=== PATIENT | female | born 1945 | race Caucasian/White ===

== ENCOUNTER 2016-12-13 09:52 | Outpatient (CLI) | payer MEDICARE, OTHER | END 2016-12-13 09:53 | disposition home or self-care (01) | DX: E11.9 Type 2 diabetes mellitus without complications (principal); Z79.899 Other long term (current) drug therapy ==

== ENCOUNTER 2017-03-14 10:51 | Outpatient (CLI) | payer MEDICARE, OTHER | END 2017-03-14 10:52 | disposition home or self-care (01) | DX: E11.9 Type 2 diabetes mellitus without complications (principal); Z79.899 Other long term (current) drug therapy ==

== ENCOUNTER 2017-04-27 09:53 | Outpatient (CLI) | payer MEDICARE, OTHER | END 2017-04-27 09:54 | disposition home or self-care (01) | DX: M81.0 Age-related osteoporosis without current pathological fracture (principal); E78.5 Hyperlipidemia, unspecified; Z79.899 Other long term (current) drug therapy ==

== ENCOUNTER 2017-05-02 14:38 | Outpatient (CLI) | payer MEDICARE, OTHER ==
--- NOTE | 2017-05-02 17:12 | XRAY Report ---
THREE VIEW LUMBAR SPINE: 05/02/2017 CLINICAL INDICATION: Pain. AP, lateral, coned-down views of the lumbar spine demonstrate moderate degenerative disk and facet di sease, with disk space narrowing worst at L5-S1. There is degenerative anterolisthesis of L4 on L5 b y 8 mm. There is no evidence of compression fracture. The bowel gas pattern appears unremarkable. IMPRESSION: MODERATE DEGENERATIVE CHANGES, WITH DEGENERATIVE ANTEROLISTHESIS OF L4 ON L5. NO EVIDEN CE OF FRACTURE. JOB #: [id number] EXT JOB #:[id number]
== END 2017-05-02 14:39 | disposition home or self-care (01) ==
LOC: DI 14:38
PROVIDERS: ATTEND Physician Assistant Medical
DX: M51.36 Other intervertebral disc degeneration, lumbar region (principal); M47.896 Other spondylosis, lumbar region; M43.16 Spondylolisthesis, lumbar region
CPT/HCPCS: 72100

== ENCOUNTER 2017-05-15 10:09 | Outpatient (CLI) | payer MEDICARE, OTHER ==
--- NOTE | 2017-05-16 08:29 | Mammography Report ---
DIGITAL BILATERAL SCREENING MAMMOGRAM: 05/15/2017 CLINICAL HISTORY: This is a 71-year-old female in for routine screening mammogram. Patient has had no family history of breast cancer. Patient had no prior breast surgeries. COMPARISON: 04/12/2016, 02/04/2015, 01/27/2014, 10/24/2012, 07/28/2011, 06/21/2010, 06/16/2009, 02/26 TECHNIQUE: Craniocaudad and oblique lateral views of each breast were obtained with [employer] digital mammography. FINDINGS: The breast parenchyma consists of scattered fibroglandular densities. No significant clus ters of calcification are seen. A 1-cm in diameter relatively well-circumscribed mass is once again noted 3.2 cm posterior to the right nipple. This mass is seen on multiple preceding exams dated as f ar back as 03/22/2008 without change. The finding is, therefore, of benign etiology. No significant change is detected in the breasts. IMPRESSION: BREASTS APPEAR RADIOGRAPHICALLY BENIGN. BIRADS CATEGORY 2 - BENIGN FINDING. RECOMMENDATIONS: Annual bilateral screening mammography. STANDARD QUALIFYING STATEMENTS 1. This examination was reviewed with the aid of Computer-Aided Detection (CAD). 2. A negative or benign imaging report should not delay biopsy if clinically suspicious findings are present. Consider surgical consultation if warranted. More than 5% of cancers are not identified by i ursula. 3. Dense breasts may obscure an underlying neoplasm. JOB #: [id number] EXT JOB #:[id number]
== END 2017-05-15 10:10 | disposition home or self-care (01) ==
LOC: DI 10:09
PROVIDERS: ATTEND Physician Assistant Medical
DX: Z12.31 Encounter for screening mammogram for malignant neoplasm of breast (principal)
CPT/HCPCS: 77067

== ENCOUNTER 2017-05-15 10:10 | Outpatient (CLI) | payer MEDICARE, OTHER ==
--- NOTE | 2017-05-17 11:32 | DEXA Report ---
DEXA BONE MINERAL DENSITY SCAN: 05/15/2017 CLINICAL HISTORY: Postmenopausal. TECHNIQUE: Dual energy x-ray absorptiometry (DXA) was performed on a [employer] system. Regions measured are the AP spine, femoral neck, and, if needed, forearm. COMPARISON: None. In accordance with the International Society for Clinical Densitometry (ISCD) guidelines, data from previous exams may be reanalyzed using current recommendations and techniques. This is done to allow a more accurate basis for comparison with the current study. FINDINGS: L1 through L4 T-score is -1.8. This indicates osteopenia according to the World Health Organization guidelines. Femoral neck T-score is -0.7. This is within normal limits according to the World Health Organization guidelines. Total hip T-score is -0.2. This is within normal limits according to the World Health Organization guidelines. The data for the lumbar spine is as follows: REGION BMD (g/cm/cm) T-SCORE Z-SCORE L1 0.994 -1.1 -0.1 L2 0.937 -2.2 -1.1 L3 0.980 -1.8 -0.8 L4 0.944 -2.1 -1.1 TOTAL 0.963 -1.8 -0.7 NOTE: All evaluable vertebrae are used for classification. The data for the hip is as follows: REGION BMD (g/cm/cm) T-SCORE Z-SCORE Neck 0.946 -0.7 0.8 TOTAL 0.987 -0.2 1.0 NOTE: The femoral neck or total proximal femur, whichever is lowest, is used for classification. IMPRESSION: THE WHO CLASSIFICATION BASED ON THE INTERNATIONAL REFERENCE STANDARD IS OSTEOPENIA ACCORDING TO THE WORLD HEALTH ORGANIZATION GUIDELINES. THE PATIENT HAS INCREASED FRACTURE RISK. RECOMMENDATION: Patients with diagnosis of osteoporosis or osteopenia should have regular bone mineral density assessment. For those eligible for Medicare, routine testing is allowed once every 2 years. Testing frequency can be increased for patients who have rapidly progressing disease or for those who are receiving medical therapy to restore bone mass. COMMENT: World Health Organization (WHO) definitions for osteoporosis and osteopenia: NORMAL BMD: T-score at -1.0 or higher, fracture risk is low. OSTEOPENIA BMD: T-score between -1.0 and -2.5, fracture risk is increased. OSTEOPOROSIS BMD: T-score at -2.5 or lower, fracture risk high. National Osteoporosis Foundation recommends: 1. Obtain adequate dietary calcium (at least 1200 mg per day) and vitamin D (400 -800 international units per day). 2. Participate, as appropriate, in regular weightbearing and muscle- strengthening exercise. 3. Avoid tobacco use and reduce alcohol and caffeine intake. 4. For more detailed information see the website at www.NOF.org. MTDD
== END 2017-05-15 10:11 | disposition home or self-care (01) ==
LOC: DI 10:10
PROVIDERS: ATTEND Physician Assistant Medical
DX: Z13.820 Encounter for screening for osteoporosis (principal); M85.88 Other specified disorders of bone density and structure, other site; Z78.0 Asymptomatic menopausal state
CPT/HCPCS: 77080

== ENCOUNTER 2017-06-27 08:00 | Outpatient (CLI) | payer MEDICARE, OTHER ==
[2017-06-27 13:15] LABS: HCT - HEMATOCRIT 37.9 % (37.0-47.0); HGB - HEMOGLOBIN 12.6 g/dL (12.0-16.0); MEAN CORPUSCULAR HEMOGLOBIN 29.4 pg (27.0-31.0); MEAN CORPUSCULAR HGB CONC 33.3 g/dL (32.0-36.0); MEAN CORPUSCULAR VOLUME 88.3 fL (81.0-99.0); MEAN PLATELET VOLUME 9.6 fL (7.9-10.8); RED BLOOD COUNT 4.29 10^6/uL (4.20-5.40); RED CELL DISTRIBUTION WIDTH 14.1 % (12.0-15.0); WHITE BLOOD COUNT 5.6 x10^3/uL (4.8-10.8)
[2017-06-27 13:37] LABS: HEMOGLOBIN A1C 0.66 g/dL
[2017-06-27 13:41] LABS: CALCIUM 9.7 mg/dL (8.5-10.3); CREATININE 0.8 mg/dL (0.4-1.0); POTASSIUM 4.3 mmol/L (3.5-5.0)
[2017-06-27 13:46] LABS: BILIRUBIN,TOTAL 0.8 mg/dL (0.2-1.0); TOTAL PROTEIN 7.6 g/dL (6.7-8.2)
[2017-06-27 13:47] LABS: BILIRUBIN,DIRECT < 0.1 mg/dL (0.1-0.5)
== END 2017-06-27 08:01 | disposition home or self-care (01) ==
LOC: LAB.N 08:00
PROVIDERS: ATTEND Dermatology
DX: B35.1 Tinea unguium (principal); E87.1 Hypo-osmolality and hyponatremia; Z79.899 Other long term (current) drug therapy
CPT/HCPCS: 36415; 80048; 80076; 83036

== ENCOUNTER 2018-02-01 08:00 | Outpatient (CLI) | payer MEDICARE, OTHER ==
[2018-02-01 13:37] LABS: HB2 TOTAL 13.8 g/dL; HEMOGLOBIN A1C 0.72 g/dL; HEMOGLOBIN A1C % 6.9 % (4.6-6.2)
== END 2018-02-01 08:01 | disposition home or self-care (01) ==
LOC: LAB.N 08:00
PROVIDERS: ATTEND Physician Assistant Medical
DX: E11.9 Type 2 diabetes mellitus without complications (principal)
CPT/HCPCS: 36415; 82947; 83036

== ENCOUNTER 2018-07-03 08:00 | Outpatient (CLI) | payer MEDICARE, OTHER ==
[2018-07-03 12:50] LABS: BASOPHILS % (AUTO) 0.8 %; EOSINOPHILS # (AUTO) 0.1 10^3/uL (0.0-0.7); EOSINOPHILS % (AUTO) 1.4 %; HGB - HEMOGLOBIN 13.4 g/dL (12.0-16.0); LYMPHOCYTES # (AUTO) 1.7 10^3/uL (1.5-3.5); MEAN CORPUSCULAR HEMOGLOBIN 29.6 pg (27.0-31.0); MEAN CORPUSCULAR HGB CONC 33.5 g/dL (32.0-36.0); MEAN CORPUSCULAR VOLUME 88.3 fL (81.0-99.0); MEAN PLATELET VOLUME 9.6 fL (7.9-10.8); MONOCYTES # (AUTO) 0.4 10^3/uL (0.0-1.0); MONOCYTES % (AUTO) 6.2 %; NEUTROPHILS # (AUTO) 3.5 10^3/uL (1.5-6.6); NEUTROPHILS % (AUTO) 61.6 %; PLT - PLATELET COUNT 291 10^3/uL (130-450); RED BLOOD COUNT 4.52 10^6/uL (4.20-5.40); RED CELL DISTRIBUTION WIDTH 13.6 % (12.0-15.0); WHITE BLOOD COUNT 5.7 x10^3/uL (4.8-10.8)
[2018-07-03 13:18] LABS: ALBUMIN 4.3 g/dL (3.2-5.5); ALBUMIN/GLOBULIN RATIO 1.3 (1.0-2.2); ALKALINE PHOSPHATASE 79 IU/L (42-121); ALT ALANINE AMINOTRANSFERASE 17 IU/L (10-60); AST ASPARTATE AMINOTRANSFERASE 18 IU/L (10-42); BILIRUBIN,TOTAL 0.6 mg/dL (0.2-1.0); BUN - BLOOD UREA NITROGEN 18 mg/dL (6-20); CALCIUM 9.2 mg/dL (8.5-10.3); CARBON DIOXIDE - CO2 25 mmol/L (21-32); CHLORIDE 102 mmol/L (101-111); CHOL/HDL RATIO 2.9 (<4.4); CHOLESTEROL 173 mg/dL; CREATININE 0.8 mg/dL (0.4-1.0); GFR - MDRD 70 (>89); GLUCOSE 138 mg/dL (70-100); HDL CHOLESTEROL 59 mg/dL; LDL CHOLESTEROL,CALCULATED 87 mg/dL; LDL/HDL RATIO 1.5 (<4.4); SODIUM 136 mmol/L (135-145); TOTAL PROTEIN 7.5 g/dL (6.7-8.2); VLDL CHOLESTEROL 27 mg/dL
[2018-07-03 16:35] LABS: HB2 TOTAL 14.3 g/dL; HEMOGLOBIN A1C 0.75 g/dL
== END 2018-07-03 08:01 | disposition home or self-care (01) ==
LOC: LAB.N 08:00
PROVIDERS: ATTEND Physician Assistant Medical
DX: Z79.899 Other long term (current) drug therapy (principal); E55.9 Vitamin D deficiency, unspecified; E11.9 Type 2 diabetes mellitus without complications; I10 Essential (primary) hypertension; E78.2 Mixed hyperlipidemia
CPT/HCPCS: 36415; 80053; 80061; 82306; 83036; 83721; 84443; 85025

== ENCOUNTER 2018-07-12 08:24 | Outpatient (CLI) | payer MEDICARE, OTHER ==
--- NOTE | 2018-07-13 09:36 | Mammography Report ---
Procedure Date: 07/12/2018 Accession Number: [id number] / [id number] Procedure: MGN - Screening Mammo Dig Bilat CPT Code: FULL RESULT: EXAM: Screening Mammo Dig Bilat DATE: 07/12/2018 8:52 AM CLINICAL HISTORY: 72-year-old female presents for screening mammogram. TECHNIQUE: Bilateral CC and MLO views were obtained. COMPARISON: 05/15/2017, 04/12/2016, 02/04/2015, 01/27/2014. FINDINGS: The breasts demonstrate scattered fibroglandular densities bilaterally. Coarse typically benign right breast calcifications are noted. The well-circumscribed hyperdense 1 cm mass posterior to the right nipple is again stable and therefore benign. No suspicious masses, clustered microcalcifications, or regions of architectural distortion are identified. IMPRESSION: Benign findings RECOMMENDATION: Routine annual screening unless otherwise clinically indicated. BIRADS CATEGORY 2: Benign findings STANDARD QUALIFYING STATEMENTS: 1. This examination was reviewed with the aid of Computer-Aided Detection (CAD). 2. A negative or benign imaging report should not delay biopsy if clinically suspicious findings are present. Consider surgical consultation if warrented. More than 5% of cancers are not identified by imaging. 3. Dense breasts may obscure an underlying neoplasm.
== END 2018-07-12 08:25 | disposition home or self-care (01) ==
LOC: DI.N 08:24
PROVIDERS: ATTEND Physician Assistant Medical
DX: Z12.31 Encounter for screening mammogram for malignant neoplasm of breast (principal)
CPT/HCPCS: 77067

== ENCOUNTER 2018-11-28 10:37 | Outpatient (CLI) | payer MEDICARE, OTHER ==
[2018-11-28 15:53] LABS: HEMOGLOBIN A1C 0.73 g/dL; HEMOGLOBIN A1C % 6.9 % (4.6-6.2)
== END 2018-11-28 23:59 | disposition home or self-care (01) ==
LOC: LAB.N 10:37
PROVIDERS: ATTEND Physician Assistant Medical
DX: E11.9 Type 2 diabetes mellitus without complications (principal); Z79.899 Other long term (current) drug therapy
CPT/HCPCS: 36415; 82043; 82947; 83036

== ENCOUNTER 2019-04-10 08:00 | Outpatient (CLI) | payer MEDICARE, OTHER ==
[2019-04-10 19:03] LABS: ALBUMIN 4.1 g/dL (3.2-5.5); ALBUMIN/GLOBULIN RATIO 1.4 (1.0-2.2); ALKALINE PHOSPHATASE 72 IU/L (42-121); ALT ALANINE AMINOTRANSFERASE 22 IU/L (10-60); AST ASPARTATE AMINOTRANSFERASE 19 IU/L (10-42); BILIRUBIN,TOTAL 0.6 mg/dL (0.2-1.0); BUN - BLOOD UREA NITROGEN 15 mg/dL (6-20); CALCIUM 9.2 mg/dL (8.5-10.3); CARBON DIOXIDE - CO2 24 mmol/L (21-32); CHLORIDE 94 mmol/L (101-111); CHOL/HDL RATIO 2.9 (<4.4); CHOLESTEROL 155 mg/dL; CREATININE 0.6 mg/dL (0.4-1.0); GFR - MDRD 97 (>89); GLUCOSE 120 mg/dL (70-100); HDL CHOLESTEROL 53 mg/dL; LDL CHOLESTEROL,CALCULATED 57 mg/dL; LDL/HDL RATIO 1.1 (<4.4); SODIUM 131 mmol/L (135-145); VLDL CHOLESTEROL 45 mg/dL
== END 2019-04-10 23:59 | disposition home or self-care (01) ==
LOC: LAB.N 08:00
PROVIDERS: ATTEND Internal Medicine
DX: E11.9 Type 2 diabetes mellitus without complications (principal); E78.5 Hyperlipidemia, unspecified; I10 Essential (primary) hypertension
CPT/HCPCS: 36415; 80053; 80061; 82043; 83721; 84443

== ENCOUNTER 2019-07-16 14:41 | Outpatient (CLI) | payer MEDICARE, OTHER ==
--- NOTE | 2019-07-18 04:10 | XRAY Report ---
Reason: PERSISTENT SORE NECK Procedure Date: 07/16/2019 Accession Number: [id number] / [id number] Procedure: XRN - Cervical Spine 2 View CPT Code: FULL RESULT: EXAM: CERVICAL SPINE RADIOGRAPHY EXAM DATE: 07/16/2019 03:05 PM CLINICAL HISTORY: Persistent sore neck. Chronic neck pain. COMPARISONS: XR CERVICAL SPINE MIN 4 VIEWS 01/30/2008 4:52 PM. TECHNIQUE: 4 views. A total of 4 exposures are provided for review. FINDINGS: Alignment: Straightening of the cervical spine is noted. Very slight anterolisthesis of C3 relative to C4 and of C4 relative to C5 is noted. Bones: The cervical vertebral bodies and posterior elements are well-visualized from the skull base through C7-T1. No fractures or bone lesions. Disks: Moderate to severe lower cervical disk space height loss as well as endplate osteophytosis. Facets: Multilevel facet arthropathy, left greater than right. Soft Tissues: No pathologic prevertebral soft tissue swelling. No significant consolidation within the lung apices. IMPRESSION: 1. Loss of cervical lordosis and straightening of the spine may be positional and/or related to muscle spasm. 2. Moderate to severe lower cervical spondylitic change has progressed from the prior exam. 3. Slight anterolisthesis of C3 relative to C4 and of C4 relative to C5 noted. These are likely secondary to degenerative disk disease. There is new moderate to severe C3-C4 disk space height loss. 4. Multilevel cervical facet arthropathy. RAD[facility]
== END 2019-07-16 14:42 | disposition home or self-care (01) ==
LOC: DI.N 14:41
PROVIDERS: ATTEND Internal Medicine
DX: M47.812 Spondylosis without myelopathy or radiculopathy, cervical region (principal); M43.12 Spondylolisthesis, cervical region; M50.31 Other cervical disc degeneration, high cervical region
CPT/HCPCS: 72040

== ENCOUNTER 2022-10-17 12:37 | Outpatient (CLI) | payer MEDICARE, OTHER ==
[2022-10-17 13:28] LABS: THYROID STIMULATING HORMONE 0.62 uIU/mL (0.34-5.60)
[2022-10-17 13:29] LABS: FREE T3 3.04 pg/mL (2.5-3.9)
== END 2022-10-17 12:38 | disposition home or self-care (01) ==
LOC: LAB 12:37
PROVIDERS: ATTEND Internal Medicine
DX: E87.1 Hypo-osmolality and hyponatremia (principal); R94.6 Abnormal results of thyroid function studies
CPT/HCPCS: 36415; 84443; 84481

== ENCOUNTER 2023-02-08 09:28 | Outpatient (CLI) | payer MEDICARE, OTHER ==
[2023-02-08 10:08] LABS: ALBUMIN 4.1 g/dL (3.2-5.5); ALBUMIN/GLOBULIN RATIO 1.3 (1.0-2.2); BILIRUBIN,TOTAL 0.4 mg/dL (0.2-1.0); CALCIUM 9.3 mg/dL (8.5-10.3); CREATININE 0.6 mg/dL (0.4-1.0); POTASSIUM 4.4 mmol/L (3.5-5.0); TOTAL PROTEIN 7.2 g/dL (6.7-8.2)
[2023-02-08 10:23] LABS: THYROID STIMULATING HORMONE 0.65 uIU/mL (0.34-5.60)
[2023-02-08 10:24] LABS: FREE T3 3.02 pg/mL (2.5-3.9)
[2023-02-08 11:25] LABS: ESTIMATED AVERAGE GLUCOSE 128 mg/dL (70-100); HEMOGLOBIN A1c% 6.1 % (4.27-6.07)
== END 2023-02-08 09:29 | disposition home or self-care (01) ==
LOC: LAB 09:28
PROVIDERS: ATTEND Internal Medicine
DX: R94.6 Abnormal results of thyroid function studies (principal); E11.42 Type 2 diabetes mellitus with diabetic polyneuropathy; E87.1 Hypo-osmolality and hyponatremia; I10 Essential (primary) hypertension
CPT/HCPCS: 36415; 80053; 81599; 82043; 83036; 83520; 84443; 84481

== ENCOUNTER 2023-03-02 12:09 | Outpatient (CLI) | payer MEDICARE, OTHER ==
[2023-03-02 12:28] LABS: BILIRUBIN,URINE NEGATIVE (NEGATIVE); GLUCOSE, URINE (UA) NEGATIVE (NEGATIVE); KETONES,URINE (UA) NEGATIVE (NEGATIVE); LEUKOCYTE ESTERASE, URINE TRACE (NEGATIVE); NITRITE,URINE NEGATIVE (NEGATIVE); OCCULT BLOOD,URINE NEGATIVE (NEGATIVE); PH,URINE 6.5 PH (5.0-7.5); PROTEIN,URINE NEGATIVE (NEGATIVE); UROBILINOGEN,URINE 0.2 (NORMAL) E.U./dL (NORMAL)
[2023-03-02 12:40] LABS: CLARITY,URINE CLEAR (CLEAR)
[2023-03-02 12:41] LABS: BACTERIA,URINE Few /HPF (None Seen); RBC,URINE 0-5 /HPF (0-5); SQUAMOUS EPITHELIAL CELL,UR MOD Squamous (<= Few)
== END 2023-03-02 12:10 | disposition home or self-care (01) ==
LOC: LAB 12:09
PROVIDERS: ATTEND Internal Medicine
DX: N39.3 Stress incontinence (female) (male) (principal)
CPT/HCPCS: 81001; 87086